=== PATIENT | female | born 1970 | race Two or more races ===

== ENCOUNTER 2021-12-13 15:29 | Outpatient (CLI) | payer OTHER | END 2021-12-13 15:40 | disposition home or self-care (01) | LOC: RAD 15:29 | PROVIDERS: ATTEND Specialist | DX: S97.01XA Crushing injury of right ankle, initial encounter (principal); S90.31XA Contusion of right foot, initial encounter ==

== ENCOUNTER 2022-03-08 13:16 | Outpatient (CLI) | payer OTHER | END 2022-03-08 13:25 | disposition home or self-care (01) | LOC: RAD 13:16 | PROVIDERS: ATTEND Orthopaedic Surgery | DX: S92.354D Nondisplaced fracture of fifth metatarsal bone, right foot, subsequent encounter for fracture with routine healing (principal) ==